=== PATIENT | male | born 1965 | race African-American/Black ===

== ENCOUNTER → 2017-01-14 | Outpatient (CLI) | payer OTHER ==
[2017-01-14 14:38] LABS: CHOLESTEROL 122 mg/dL (0-200); GLUCOSE FASTING 115 mg/dL (70-110); HDL CHOLESTEROL 40 mg/dL (29-75); LDL CHOLESTEROL 61 mg/dL (-130); LDL/HDL RATIO 2 RATIO (0-4); TRIGLYCERIDES 103 mg/dL (10-160)
== END | disposition home or self-care (01) ==
LOC: CLAB 13:10
DX: I21.4 Non-ST elevation (NSTEMI) myocardial infarction (principal)
CPT/HCPCS: 36415; 80061; 82947; 83036; 86140

== ENCOUNTER → 2017-02-07 | Outpatient (CLI) | payer OTHER ==
[2017-02-07 13:59] LABS: CHOLESTEROL 122 mg/dL (0-200); GLUCOSE FASTING 88 mg/dL (70-110); HDL CHOLESTEROL 42 mg/dL (29-75); LDL CHOLESTEROL 68 mg/dL (-130); LDL/HDL RATIO 2 RATIO (0-4); TRIGLYCERIDES 60 mg/dL (10-160)
== END | disposition home or self-care (01) ==
LOC: CLAB 12:44
DX: I21.4 Non-ST elevation (NSTEMI) myocardial infarction (principal)
CPT/HCPCS: 36415; 80061; 82947; 83036; 86140